=== PATIENT | male | born 1935 | race Caucasian/White ===

== ENCOUNTER → 2017-10-08 | Outpatient (CLI) | payer MEDICARE ==
[2014-03-06 12:18] VITALS: BMI 23.0
[~2017-10-08] MED LIST: CIPR-344 PO; DOCU-416 PO; FAMO20TA28 PO; HYDR-389 PO; IBUP-1671 PO; MULT-820 PO; TRAM-420 PO
--- NOTE | 2017-10-08 13:46 | RADIOLOGY IMAGING REPORT ---
FACILITY: [facility] PATIENT NAME: Jac Diaz : 1935 MR: [id number] V: [id number] EXAM DATE: ORDERING PHYSICIAN: BRIANNA COVARRUBIAS TECHNOLOGIST: [place] [facility] [place] Jac [place] : 1935 Visit/Account:[id number] Date of Sevice: 10/08/2017 WHOLE BODY BONE SCAN HISTORY: Elevated PSA TECHNIQUE: 26 mCi technetium 99m HDP was injected intravenously. Delayed anterior and posterior whol e body gamma camera images were obtained. Additional gamma camera images: Right and left lateral skull COMPARISON: None. FINDINGS: Bone radiotracer activity: There is increased uptake seen focally over the left side of the mid cerv ical spine which could be degenerative in nature. There are additional focal areas of isotope uptake seen in the midthoracic spine and the lower lumbar spine may also be degenerative.. This increased uptake seen over the anterior aspect of a mid to lower left rib which may be related to prior fractur e. Increased uptake of a degenerative nature seen over the wrists. Extraosseous radiotracer activity: Unremarkable. Renal and urinary collecting system activity: Unremarkable. IMPRESSION: There is focal isotope uptake seen in the cervical thoracic and lumbar spine which may simply be dege nerative in nature. Plain film correlation may be helpful Increased uptake over the anterior aspect of the mid to lower left rib may be related to prior fractu re. Plain film correlation may be helpful. Report Dictated By: Dona Chavez MD at 10/08/2017 1:31 PM Report E-Signed By: Dona Chavez MD at 10/08/2017 1:42 PM WSN:[email or web address]
== END ==
LOC: NUC 04:37
DX: R97.20 Elevated prostate specific antigen [PSA] (principal); M25.559 Pain in unspecified hip
CPT/HCPCS: 36415; 78306; 84153; A9503

== ENCOUNTER 2017-10-21 03:53 | Observation (INO) | payer MEDICARE ==
[2017-10-21] VITALS (14 sets, daily range): BP systolic 96–161; BP diastolic 55–102
[~2017-10-21] VITALS: Ht 180.3 cm; Wt 67.6 kg
[2017-10-21 10:19] LABS: PLATELET COUNT, AUTOMATED 176 K/uL (150-450)
[2017-10-21] MEDS ORDERED: GENTAMICIN(*) 80 MG/2 ML VIAL 160 MG in NS(*) 0.9% 100 ML BAG 100 ML IVPB ONE (10:35)
[2017-10-21] MEDS ORDERED: NORMOSOL R SOLN(*) 1000 ML BAG 1,000 ML IV PRN (10:35)
[2017-10-21] MEDS ORDERED: FAMOTIDINE 20 MG TAB PO ONE (10:35)
[2017-10-21] MEDS ORDERED: MIDAZOLAM 2 MG/2 ML VIAL IVP PRN (10:35)
[2017-10-21] MEDS ORDERED: LIDOCAINE/SOD BICARB 8.4% SYR ID ONE (10:35)
[2017-10-21] MEDS ORDERED: cefTRIAXone(*) 1 GM VIAL 1 GM in NS(*) 0.9% 100 ML ADDVANT BAG 100 ML IVPB ONE (10:35)
[2017-10-21] MEDS ORDERED: PROPOFOL EMUL(*) 10MG/ML 20 ML 20 ML ONE (11:44)
[2017-10-21] MEDS ORDERED: DEXAMETHASONE SOD 4 MG/ML VIAL ONE (11:44)
[2017-10-21] MEDS ORDERED: fentaNYL CITR 100 MCG/2 ML AMP ONE ×3 (11:44→14:29)
[2017-10-21] MEDS ORDERED: LIDOCAINE MPF 1% 5 ML VIAL ONE (11:44)
[2017-10-21] MEDS ORDERED: ONDANSETRON 4 MG/2 ML VIAL ONE (11:44)
[2017-10-21] MEDS ORDERED: ePHEDrine 25 MG/5 ML DISP.SYR IVP ONE (12:04)
--- NOTE | 2017-10-21 13:58 | RADIOLOGY IMAGING REPORT ---
FACILITY: [facility] - [place] PATIENT NAME: Jac Diaz : 1935 MR: [id number] V: [id number] EXAM DATE: ORDERING PHYSICIAN: BRIANNA COVARRUBIAS TECHNOLOGIST: Location: [facility] [place] Patient: Jac Diaz : 1935 Visit/Account:[id number] Date of Sevice: 10/21/2017 Exam type: PROSTATE BIOPSY History: Elevated PSA Comparison: None. Findings: Prostate biopsy was performed by Dr. Covarrubias. Sonographic assistance was provided. Please see Dr. Pacheco cueva's note for complete details IMPRESSION: 1. As above Report Dictated By: Dona Chavez MD at 10/21/2017 1:53 PM Report E-Signed By: Dona Chavez MD at 10/21/2017 1:54 PM WSN:[email or web address]
[2017-10-21] MEDS ORDERED: NS IR ONE (14:08)
[2017-10-21] MEDS ORDERED: BACITRACIN/POLYMY B OINT 15 GM TP ONE (14:08)
[2017-10-21] MEDS ORDERED: [UNRECOGNIZED DRUG - OTHER] IR ONE (14:08)
[2017-10-21] MEDS ORDERED: BELLADONNA ALK/OPIUM 60MG SUPP PR ONE (14:58)
[2017-10-21] MEDS ORDERED: GLYCOPYRROLATE 0.2MG/ML 1 ML INJ ONE (14:59)
[2017-10-21] MEDS ORDERED: GLYCOPYRROLATE 0.2MG/ML 1 ML INJ IVP PRN (15:35)
[2017-10-21] MEDS ORDERED: LR(*) 1000 ML BAG 1,000 ML IV PRN (15:35)
[2017-10-21] MEDS ORDERED: NALOXONE HCL 0.4 MG/ML VIAL IVP PRN (15:35)
[2017-10-21] MEDS ORDERED: ONDANSETRON 4 MG/2 ML VIAL IVP PRN (15:35)
[2017-10-21] MEDS ORDERED: ZOLPIDEM TARTRATE 5 MG TAB PO PRN (15:35)
[2017-10-21] MEDS ORDERED: FLUSH 10 ML SYR IVP PRN (15:35)
[2017-10-21] MEDS ORDERED: BELLADONNA ALK/OPIUM 60MG SUPP PR PRN (15:35)
[2017-10-21] MEDS ORDERED: PROPANTHELINE BROMIDE 15MG TAB PO PRN (15:35)
[2017-10-21] MEDS ORDERED: HYDROmorphone PCA 6 MG/30 ML IV PRN (16:35)
[2017-10-21] MEDS: BENZALKONIUM CL 1:750 TOP SOLN TP SCH (21:00)
[2017-10-21] MEDS: FAMOTIDINE 20 MG TAB PO SCH (21:20)
[2017-10-21] MEDS: NEOMYCIN/POLYMYX/BACITR OINT 1 PACKET TP SCH (21:20)
[2017-10-21] MEDS: DOCUSATE SODIUM 100 MG CAP PO SCH (21:21)
--- NOTE | 2017-10-21 22:06 | OPERATIVE REPORT 1 ---
EVENT DATE: October 21, 2017 SURGEON: Stanley Subramanian MD ANESTHESIOLOGIST: Stu Morrow MD ANESTHESIA: General anesthetic. PREOPERATIVE DIAGNOSES 1. Elevated prostate-specific antigen, etiology ? 2. Right inguinal hernia, probable direct and indirect components. POSTOPERATIVE DIAGNOSES 1. Elevated prostate-specific antigen, etiology ? 2. Right inguinal hernia, probable direct and indirect components. PROCEDURES PERFORMED 1. Prostate ultrasound. 2. Prostate biopsies transrectal. 3. Cystourethroscopy. 4. Right hernia Bassini repair. 5. High ligation of indirect hernia. 6. Bassini herniorrhaphy of direct hernia. 7. Excision of large lipoma of the cord. DESCRIPTION OF PROCEDURE Under general anesthetic, the patient was prepped and draped in the standard lithotomy position. The digital rectal examination revealed a relatively small prostate, approximately 60 to 70 g with induration of the right lobe. Transrectal probe was introduced. Scanning of the prostate showed diffuse calculi bilaterally throughout the prostate, left probably greater than right. Hypoechoic area particularly in the mid gland on the right extending to the right base. Prostate measured to approximately 25 g. Biopsies were obtained from the base, mid, and apical lobe areas of the prostate bilaterally times two for a total of 12 biopsy samples. Rectal probe was removed. Digital examination revealed minimal blood in the rectal ampulla. Patient was prepped and draped again in an extended lithotomy position. The 21 panendoscope admitted through the urethra into the bladder. Urethra was normal. Prostate showed trilobar hyperplasia with obstruction. Bladder showed 4+ trabeculation. Trigone and ureteral orifices were normal. No other demonstrable lesions. There was minimal blood in the bladder and prostatic urethra that irrigated clear relatively easily. The bladder was drained. Patient was positioned in the supine position for his hernia repair. After prepping and draping, the incision was made in the right groin area. Tissues were incised down to the underlying external oblique fascia. Bleeding was controlled with spot coagulation and ligatures. The external oblique was incised throughout the length of the incision. The cord was freed from its attachments. There was a large, indirect hernia approximately 2 inches across at its greatest diameter. The indirect hernia extended all the way to the external ring area. There was a large direct hernia extending along the entire floor of the inguinal canal. The indirect hernia was dissected off of the cord cephalad. The hernia was stuck fairly tightly to the vas deferens. The hernia sac was dissected without any difficulty. The vas deferens and cord were satisfactorily dissected free and spared. The indirect hernia sac was high ligated with 2-0 chromic catgut suture in a pursestring fashion. A free tie was placed approximately 1 to 2 mm cephalad to the pursestring suture. This was accomplished with 0 silk ligature. Then, there was a stick tie placed just distal to the free tie. The excess was trimmed and sent to the pathologist for confirmation. There was a large lipoma of the cord that was dissected from the external ring area to the internal ring area. The lipoma cord was cross-clamped at the internal ring area. The lipoma was tied off with 2-0 chromic catgut suture. This was then accomplished times two. The external oblique was elevated off of the internal oblique fascia and muscle. Poupart ligament was dissected free and was cleared of any restrictive tissue. The conjoined tendon was brought down to the shelving margin of the Poupart ligament throughout the length of floor of the inguinal canal to the internal ring area where the cord was egressing. The cord appeared to be free of any restriction. Number 1 silk dillon stitches were placed cephalad to the cord. The testicle would seat well down into the dependent portion of the right hemiscrotum without any difficulty. The wound was irrigated with double antibiotic solution several times throughout the procedure. The external oblique was closed with interrupted 2-0 silk ligatures. The subcutaneous tissue was irrigated with double antibiotic solution. Subcutaneous tissue was reapproximated with 3-0 plain catgut. The skin was closed with skin clips. The wound was cleaned and dressed in the usual fashion. The testicle was well down in the dependent portion of the right hemiscrotum. A #16 Moore was placed per urethra into the bladder and put to gravity drainage. The estimated blood loss was less than 50 mL. Patient tolerated the procedures satisfactorily and returned to the recovery room in satisfactory condition. This is an 82-year-old white male complaining of a rapidly enlarging right inguinal hernia that was confirmed in the office. On review of the patient's chart, he was noted to have an elevated PSA. Patient never followed up, following this in 2016 office visit when he had an elevated test result. Patient returned in October 2017 and found an elevated PSA of 24+. Options were discussed with the patient pretreatment. He was agreeable to further evaluation and therapy. See operative note for details of procedures and ultrasound. Patient will be ready for discharge home in the a.m. if all is going well. Force fluids, 2 L per day. Activities are restricted to careful ambulation. Plan Moore removal in the a.m. Patient is to continue his usual medications. Patient was instructed on routine wound care. Patient may shower as instructed. Plan followup in my office this coming Wednesday. He is to call for an appointment. He was given my personal phone number to contact me if there are any problems. If he is unable to contact me, he is to go to the Emergency Room for assistance. MELYSSA
[2017-10-21] MEDS ORDERED: GENTAMICIN(*) 80 MG/2 ML VIAL 80 MG in NS(*) 0.9% 100 ML BAG 100 ML IVPB SCH (23:30)
[2017-10-21] MEDS: GENTAMICIN/NS 80 MG/100 ML PB 100 ML IVPB SCH (23:31)
[2017-10-22 03:53] VITALS: BP 122/73
[2017-10-22] MEDS ORDERED: ACET-1718 PO (07:25)
[2017-10-22] MEDS ORDERED: FAMO20TA28 PO (07:26)
[2017-10-22] MEDS ORDERED: DOCU-416 PO (07:27)
[2017-10-22] MEDS ORDERED: IBUP600T22 PO (07:29)
[2017-10-22] MEDS ORDERED: IBUP-1671 PO (07:29)
[2017-10-22 07:35] VITALS: BP 97/61
[2017-10-22] MEDS ORDERED: TAMS0.4C25 PO (07:37)
[2017-10-22] MEDS ORDERED: CIPR-214 PO (07:39)
[2017-10-22] MEDS: NEOMYCIN/POLYMYX/BACITR OINT 1 PACKET TP SCH (08:58)
[2017-10-22] MEDS: DOCUSATE SODIUM 100 MG CAP PO SCH (08:59)
[2017-10-22] MEDS: FAMOTIDINE 20 MG TAB PO SCH (08:59)
[2017-10-22] MEDS: BENZALKONIUM CL 1:750 TOP SOLN TP SCH (08:59)
[2017-10-22] MEDS ORDERED: BISACODYL 10 MG SUPP PR ONE (10:05)
[2017-10-22] MEDS ORDERED: MAGNESIUM HYDROXIDE* 30ML UDCP PO PRN (10:05)
[2017-10-22] MEDS ORDERED: TAMSULOSIN HCL 0.4 MG CAP PO ONE ×2 (10:05→13:25)
[2017-10-22 10:24] VITALS: Ht 180.3 cm; Wt 67.6 kg
[2017-10-22] MEDS: GENTAMICIN/NS 80 MG/100 ML PB 100 ML IVPB SCH (11:17)
[2017-10-22 11:19] VITALS: BP 93/59
[2017-10-22] MEDS ORDERED: cefTRIAXone(*) 2 GM VIAL 2 GM in NS(*) 0.9% 100 ML ADDVANT BAG 100 ML IVPB SCH (12:30)
--- NOTE | 2017-10-22 13:26 | Pharmacy Note ---
Pharmacy Note Date Provider Notified: Oct 22, 2017 Note: Order for Flomax one mg po now clarified as one capsule (0.4 mg) now at 1330. Patient had a dose at 1000 so I asked if he for sure wanted second dose and, yes , he did. IONA MADSEN Oct 22, 2017 13:26
[2017-10-22] MEDS: BETHANECHOL CHL 25 MG TAB PO SCH ×2 (13:34→16:53)
[2017-10-22 15:48] VITALS: BP 106/64
[2017-11-09] MEDS ORDERED: LEUP3.753 IM (09:16)
[2017-11-09] MEDS ORDERED: BICA50TA39 PO (09:16)
== END 2017-10-22 17:34 | disposition home or self-care (01) ==
LOC: OR 03:53 → MED 16:00
DX: R97.20 Elevated prostate specific antigen [PSA] (principal); K40.90 Unilateral inguinal hernia, without obstruction or gangrene, not specified as recurrent
CPT/HCPCS: 36415; 49505; 52000; 55520; 55700; 76942; 85025; 88302; 88304; 88305; 88344; A9270; G0378; J0696; J1100; J1170; J1580; J2001; J2405; J2704; J3010; J3490; J7050; J7120; 82310; 82374; 82435; 82565; 82947; 84132; 84295; 84520

== ENCOUNTER → 2017-10-27 | Outpatient (CLI) | payer MEDICARE ==
[2017-10-22 10:24] VITALS: BMI 20.8
[~2017-10-27] MED LIST changes: +ACET-1718 PO; +CIPR-214 PO; +IBUP600T22 PO; +TAMS0.4C25 PO
--- NOTE | 2017-10-27 08:59 | RADIOLOGY IMAGING REPORT ---
FACILITY: [facility] - [place] PATIENT NAME: Jac Diaz : 1935 MR: [id number] V: [id number] EXAM DATE: ORDERING PHYSICIAN: BRIANNA COVARRUBIAS TECHNOLOGIST: Location: [facility] Patient: Jac Diaz : 1935 Visit/Account:[id number] Date of Sevice: 10/27/2017 ABDOMEN/PELVIS W/O CONTRAST HISTORY: Staging prostate cancer TECHNIQUE: CT abdomen and pelvis without intravenous contrast. Contiguous axial images of the abdom en and pelvis was performed from the lung bases to the symphysis pubis. One of the following dose optimization techniques was utilized in the performance of this exam: Autom ated exposure control; adjustment of the mA and/or kV according to the patient's size; or use of an i terative reconstruction technique. Specific details can be referenced in the facility's radiology C T exam operational policy. CONTRAST: None. COMPARISON: Bone scan 10/08/2017 FINDINGS: Visualized lung bases: There is bronchiectasis with a minimal amount of subpleural interstitial thic kening could represent mild interstitial lung disease. 6 mm pleural-based left upper lobe nodules no nirav image 10. Hepatobiliary: Negative. Spleen: Negative. Adrenals: Negative. Kidneys/: Small nonobstructing stones are noted in both kidneys measuring up to 3 mm. No obstruct ing renal or ureteral stones. 1.4 cm cyst is noted anterior lower pole left kidney. Small bubble of air is noted in the bladder presumably from catheterization. Prostate gland measures 5.1 x 3.9 cm. Coarse macrocalcifications are noted in the central portion of the gland. There are some calcifications along the tunica albuginea of the penis. Edema of the penis and upper scrotum is noted tracking into the right inguinal canal. Surgical clips are noted above the right in guinal canal presumably from recent surgery. Benign-appearing 9 mm macrocalcification is noted in the upper right scrotum. Pancreas: Negative. GI: Mucosal prominence in the fundus of the stomach could represent a normal variant or food. There is colonic diverticulosis. Vessels/spaces/nodes: Atherosclerotic calcifications noted. No pathologic retroperitoneal or pelvic adenopathy. Bones/soft tissues: The patient has a scoliosis with significant degenerative changes. Prior L3 kent inectomy is noted. IMPRESSION: 1. Prostate gland measures 5.1 x 3.9 cm with coarse macrocalcifications centrally. No definitive lo holger invasive or metastatic disease. 2. Bubble of air in the bladder is presumably from recent catheterization. 3. Surgical clips overlie the right inguinal canal. There is infiltration of the fat planes and sof t tissue fullness in the right inguinal canal presumably from recent surgery. In addition, there is subcutaneous edema of the visualized penis and upper scrotum. Please correlate clinically for prior surgery in this region. 4. Nonobstructive stones are noted in both kidneys measuring up to 3 mm. 5. 6 mm pleural-based left lower lobe micronodule. 6. Soft tissue fullness in the fundus of the stomach could be a normal variant or food. If the ila ent is symptomatic in this region, recommend endoscopy to exclude a mass. Report Dictated By: Ricky Cain MD at 10/27/2017 8:41 AM Report E-Signed By: Ricky Cain MD at 10/27/2017 8:56 AM WSN:[email or web address]
== END ==
LOC: CT 01:14
DX: N40.2 Nodular prostate without lower urinary tract symptoms (principal); N20.0 Calculus of kidney; R91.8 Other nonspecific abnormal finding of lung field
CPT/HCPCS: 74176

== ENCOUNTER 2017-12-07 13:22 | Outpatient (RCR) | payer MEDICARE ==
[2017-10-22 10:24] VITALS: BMI 20.8
--- NOTE | 2017-11-09 20:43 | ONCOLOGY CONSULTATION ---
EVENT DATE: November 09, 2017 REFERRING PHYSICIAN Stanley Subramanian MD DIAGNOSIS Adenocarcinoma of the prostate. REASON FOR CONSULTATION Patient presenting with a significantly elevated PSA of 24.6 ng/mL on October 08, 2017. Twelve core biopsies were obtained with ultrasound guidance on October 21, 2017. Four of six biopsies all positive on the right lobe, Samantha 3+4=7 tumor. Left lobe benign. Palpably abnormal gland with nodularity of the right lobe of the prostate. Stage T2b Nx M0. HISTORY OF PRESENT ILLNESS This is a pleasant 81-year-old gentleman who is referred to me by Dr. Subramanian to discuss therapeutic options for recently diagnosed prostate carcinoma. The patient had a previous PSA back in October 2015 which was elevated at 14.9 ng/mL. He did not seek medical followup for evaluation and subsequently had a repeat blood test recently through his providers with a significant elevation of 24.6 ng/mL. That blood test was drawn on October 08, 2017. CBC and CMP were normal. The patient was evaluated by Dr. Subramanian and he was found to have a palpably abnormal gland. He was advised to have an ultrasound-guided biopsy, which was performed on October 21, 2017 at [facility]. Samantha 3+4=7 tumor was appreciated on four biopsy specimens all from the right lobe of the gland occupying 5% to 20% of the core biopsy specimen. Biopsies from the left lobe were benign. In total 12 core biopsies were obtained. Simultaneously the patient had a right hernia repair by Dr. Subramanian. A lipoma was also removed at that time. Baseline AUA score of 9. Generally he has nocturia times two. He occasionally has a sensation of incomplete bladder emptying. He does have some intermittency. Patient is on oral Flomax. He is completing a course of antibiotics after his recent surgery. He states that he has noticed a small amount of serous drainage from the incision site after the btetie were removed. He did follow up with Dr. Subramanian last week, who is following this closely. The patient denies any new or persistent bone pain. He does have joint stiffness. A week ago the patient was started on bicalutamide and Lupron. No hot flashes at this juncture. He is referred for discussion of radiotherapy options. The patient underwent a baseline radiographic evaluation which included a bone scan on October 08, [address] of the abdomen and pelvis. Both studies were reviewed in the office with the patient today with no signs of metastatic disease. The prostate gland is enlarged at 5.1 x 3.9 cm with coarse microcalcifications in the center of the gland. Incidental 3 mm nonobstructing stones were noted in both kidneys. Prior L3 laminectomy was noted as well as scoliosis of the L-spine. Nonspecific 6 mm pleural-based nodule was noted in the lower lung windows. MEDICATIONS 1. Tamsulosin 24 mg q.day. 2. Ciprofloxacin 500 mg b.i.d. 3. Ibuprofen 600 mg q.6-8 hours p.r.n. 4. Colace 100 mg q.day. 5. Pepcid 20 mg b.i.d. 6. Tylenol No. 3 one tablet q.4-6 hours p.r.n. pain. 7. Bicalutamide 50 mg q.day. 8. Lupron monthly 7.5 mg. PAST MEDICAL HISTORY 1. Prostate carcinoma 2017. 2. DJD. 3. History of nephrolithiasis with kidney stone removal times three in 2007. 4. Prior rib fractures playing softball. PAST SURGICAL HISTORY 1. Left ankle repair 2002. 2. Right hernia repair in 2017. 3. Left hernia repair in 2014. 4. L3-4 laminectomy 2007. FAMILY HISTORY Notable for a brother with prostate carcinoma, at age 74. Father had heart disease and was a heavy smoker and at 74. Mother lived to age 90. Several siblings have experienced long lives. SOCIAL HISTORY Patient is a . He has nine adult children. He is retired. He used to work on computer mainframes. He lives in [place] at this time, but plans to move to [place] this fall to be with family. Patient states he has two drinks per week, does not smoke. REVIEW OF SYSTEMS No weight loss. No cardiovascular, respiratory complaints. No hematologic issues. Does have tingling in his hands and feet at times. Mild nocturia, AUA score of 9. Intermittent constipation and occasional abdominal pain and joint stiffness at multiple sites. PHYSICAL EXAMINATION GENERAL: A pleasant 81-year-old gentleman who appears younger than his stated age with a thin frame. VITAL SIGNS: Weight 155. BP 143/85, pulse 83, respirations 16. Height 71 inches. O2 sat 95% on room air. LYMPH NODES: No peripheral lymphadenopathy noted. LUNGS: Clear to auscultation bilaterally. HEART: Sounds regular with no audible murmur. ABDOMEN: Soft. No gross organomegaly. RECTAL: Exam is fairly impressive. There is a large, firm nodular prostate. There is significant elevation and expansion of the right lobe of the gland. The left lobe is unremarkable. I felt that the tumor had replaced most of the right lobe by the clinical exam, and expanded the gland as well. No tenderness was noted. SKIN: Examination was notable for a 6-7 cm incision in the right groin from his hernia repair. Superficial edges are exposed bilaterally with no signs of infection. The wound will need to heal by secondary intent over the superficial layer. EXTREMITIES: Reveal no edema or cyanosis. NEUROLOGIC: Exam is grossly intact. IMPRESSION This is a pleasant 81-year-old gentleman with newly diagnosed high risk adenocarcinoma of the prostate. He presents with a PSA of 24.6 ng/mL and a palpably abnormal gland with firm nodularity of the right lobe. This tumor is confirmed at this location with four of six biopsies all positive from the right side. It does have some irregularity on the margin of the prostate on the CT scan. Surprisingly he has no evidence of distant metastatic disease to bone or to lymph nodes that could be detected at this time. RECOMMENDATION Concurrent ADT for 24 months with external beam radiation therapy. Prostate would be treated to 72-74 Gy at 1.8 Gy per fraction. Field reductions are performed to 50 Gy and 60 Gy. I would like to wait on starting the treatment for four weeks to allow his hernia incision to heal completely. Hormone therapy should be fully active by that juncture as well. We will tentatively complete the simulation later today and start the radiation course on December 07. I went through the details of the treatment program including acute and light side effects and therapeutic alternatives. He was well counseled prior to the appointment today and fully agreeable to proceed. All questions were answered to his satisfaction and appointments made for followup and to start therapy. Thank you for the referral and opportunity to discuss options with Mr. Diaz today. MELYSSA
[~2017-12-07 13:22] MED LIST changes: +BICA50TA39 PO; +LEUP3.753 IM
[2017-12-07 13:43] VITALS: BP 142/81
[2017-12-07 13:52] LABS: PLATELET COUNT, AUTOMATED 207 K/uL (150-450)
--- NOTE | 2017-12-07 17:24 | ONCOLOGY FOLLOW UP NOTE ---
EVENT DATE: December 07, 2017 DIAGNOSIS Locally advanced adenocarcinoma of the prostate. Patient presenting with high PSA of 24.6 ng on October 08, 2017. Palpably abnormal gland with Samantha 7 tumor involving all specimens from the right lobe of the prostate. TREATMENT PLAN Patient was started on bicalutamide for 30 days and is presently on monthly Lupron. He is tolerating this well with no adverse effects. He has nocturia times three as a baseline. Generally voids every one to two hours during the day. Denies new or persistent bone pain. Patient is healing nicely from his recent hernia repair on the right side by Dr. Subramanian. He is here for incision check and discuss treatment plan for his prostate cancer. MEDICATIONS 1. Tamsulosin 0.4 mg q.day. 2. Lupron 7.5 mg q.month. 3. Pepcid 20 mg b.i.d. 4. Colace 100 mg q.day. PAST MEDICAL HISTORY 1. Prostate cancer diagnosed in 2017. 2. DJD. 3. Nephrolithiasis with kidney stone removal times three in 2007. 4. Prior rib fractures. PAST SURGICAL HISTORY 1. Previous right hernia repair, 2017. 2. Left ankle repair, 2002. 3. L3-L4 laminectomy, 2007. FAMILY HISTORY Brother of prostate cancer at age 74. Father at age 74, was also a heavy smoker. Mother lived to age 90. SOCIAL HISTORY Patient lives in [place]. He plans to move to [place] this fall. Nonsmoker. Moderate alcohol history. Nine adult children. He is retired, used to work on computer mainframes. REVIEW OF SYSTEMS Essentially unchanged from four weeks ago. AUA score 6. Occasional mild constipation, joint stiffness. PHYSICAL EXAMINATION Right inguinal hernia repair incision was inspected today, which is well healed at this time. IMPRESSION An 81-year-old gentleman with newly diagnosed high risk adenocarcinoma of the prostate. I went through the radiation therapy recommendations. Radiation therapy is typically added to ADT therapy, most commonly at the two-week to two- month timeframe following hormone therapy initiation. ADT traditionally has been delivered for a period of 24 months for the high grade tumors, and six months most recently for the intermediate risk patients. Due to the travel factor from [place], patient is considering delaying the radiation course until he moves to [place]. He told me today that he may be moving as quickly as a month from now. I told him I would be happy to refer to him to another center if he knew where he was going to be living. He did not at this time. I also informed the patient that there is some new information that was published this last month which would be pertinent to his case. In the IJROBP Journal dated October 10, 2017, there is a randomized phase three [facility] trial. Four hundred and ninety-one patients who were age 7575 years old or older with minimal urologic complaints were randomized to 3 fractionations, standard fractionation to 74 Gy, 60 Gy in 20 fractions, or 57 Gy in 19 fractions. Five year biochemical relapse re survival is presently running 88% to 91% with no significant difference between the groups. Bowel toxicity is 2% and bladder toxicity was 8%. This would certainly be an option for the patient. CBC, CMP and PSA were drawn today. Lab results will be forwarded to the patient tomorrow our nurse, Sybil. He would like to think about his options at this time as he reassesses the timing of his travel plans. If the patient elects for therapy in [place], I will modify the program to the 57 Gy fractionation in 19 fractions, which should simplify his treatment program and reduce the overall time considerably. If he elects to be treated in [place], I would be happy to refer him to a center near his location. In the interim, the patient will see Dr. Subramanian monthly for his Lupron injections. I told him that he should be on the medication for a minimum of six months in view of the fact his PSA was over 20 at diagnosis. With a palpably abnormal gland, I would lean towards a longer period of ADT in this particular gentleman personally. All questions were answered to his satisfaction over a 40-minute appointment this afternoon. PSA is now under one with good response in induction ADH. cc : Dr. Marilynn RAGSDALE
== END 2018-02-03 12:31 | disposition home or self-care (01) ==
LOC: RAON 13:22
PROVIDERS: ATTEND Radiology Radiation Oncology
DX: Z51.11 Encounter for antineoplastic chemotherapy (principal); C61 Malignant neoplasm of prostate
CPT/HCPCS: 36415; 77290; 84153; 85025; G0463; 82040; 82247; 82310; 82374; 82435; 82565; 82947; 84075; 84132; 84155; 84295; 84450; 84460; 84520; 99202; 99211